=== PATIENT | male | born 1995 ===

== ENCOUNTER 2024-02-28 07:53 | Emergency (ER) | payer SELFPAY ==
[2024-02-28] MEDS ORDERED: Promethazine HCl 25 MG/ML VIAL ONE (08:40)
[2024-02-28] MEDS ORDERED: Sodium Chloride 0.9% 1,000 ML ONE (08:40)
[2024-02-28 08:47] LABS: #Eosinophils 0.2 thou/uL (0.0-0.7); #Lymphocytes 1.6 thou/uL (1.20-3.40); #Monocytes 0.5 thou/uL (0.11-0.59); #Neutrophils 2.2 thou/uL (1.40-6.50); %Eosinophils 4.5 % (0.0-10.0); %Lymphocytes 34.5 % (21.0-51.0); %Monocytes 11.4 % (0.0-10.0); %Neutrophils 48.5 % (42.0-75.0); Hemoglobin 14.4 g/dL (14.0-18.0); Mean Corpuscular HGB CONC 31.3 g/dL (32.0-36.0); Mean Corpuscular Hemoglobin 26.7 pg (27.0-31.0); Mean Corpuscular Volume 85.1 fl (78.0-98.0); Mean Platelet Volume 6.8 fL (7.4-10.4); Platelet Count 230 10x3/uL (130-400); RBC Distribution Width 12.9 % (11.5-14.5); White Blood Cell (WBC) Count 4.5 10x3/uL (4.8-10.8)
[2024-02-28 09:00] LABS: Anion Gap 12 mmol/L (10-20); BUN (Urea Nitrogen) 14 mg/dL (8.9-20.6); Calc. Creatinine Clearance 0 mL/min (70-130); Carbon Dioxide 26 mmol/L (22-29); Chloride 105 mmol/L (98-107); Estimated GFR 93; Glucose 95 mg/dL (70-105); Potassium 3.8 mmol/L (3.5-5.1); Sodium 139 mmol/L (136-145)
== END 2024-02-28 09:29 | disposition home or self-care (01) ==
LOC: NAV ERS 07:53
DX: U07.1 COVID-19 (principal); R11.2 Nausea with vomiting, unspecified
CPT/HCPCS: 71046; 80048; 85025; 96374; J2550; J7030